=== PATIENT | female | born 1980 | race Caucasian/White ===

== ENCOUNTER 2018-01-22 19:18 | Emergency (ER) | payer SELFPAY ==
--- OUTSIDE RECORDS SUMMARY | 2018-01-22 19:20 | XMS REPORT ---
:1980 [facility] Address [address] [place] [address] [address]. Ortiz [address] [place] [address] Care Team Providers Name Role Phone JENNIFER KATHRYN Primary Care Provider Unavailable KATHRYN RODRIGUEZ Unavailable Unavailable Problems This patient has no known problems. Allergies, Adverse Reactions, Alerts This patient has no known allergies or adverse reactions. Medications This patient has no known medications. Results Test Description Test Time Test Comments Text Results Atomic Results Result Comments CBC with Differential 2017-04-17 05:37:00 Test Item Value Reference Range Comments WBC (test code=WBC) 13.1 K/cumm 4.4-10.5 RBC (test code=RBC) 4.66 M/cumm 3.75-5.20 Hemoglobin (test code=HGB) 14.0 gm/dL 12.2-14.8 Hematocrit (test code=HCT) 39.6 % 36.5-44.4 MCV (test code=MCV) 85.0 fL 80-100 MCH (test code=MCH) 30.1 pg 27.0-32.5 MCHC (test code=MCHC) 35.4 g/dL 32.0-37.5 RDW (test code=RDW) 12.6 % 11.5-14.5 Platelet Count (test code=PLTCT) 393 K/cumm 140-440 MPV (test code=MPV) 7.5 fL Diff Method (test code=DIFFM) Auto Neutrophil (test code=NEUT) 64.6 % 36-70 Lymphocyte (test code=LYMPH) 24.5 % 12-44 Monocyte (test code=MONO) 6.5 % 0-11 Eosinophil (test code=EOS) 3.9 % 0-7 Basophil (test code=BASO) 0.6 % 0-2 Neutro Abs (test code=ANEUT) 8.5 K/cumm 1.6-7.4 Lymph Abs (test code=ALYMPH) 3.2 K/cumm 0.5-4.6 [place] Abs (test code=AMONO) 0.9 K/cumm 0.0-1.2 Eos Abs (test code=AEOS) 0.51 K/cumm 0.00-0.74 Baso Abs (test code=ABASO) 0.1 K/cumm 0.00-0.21 Urinalysis [id number] 05:29:00 Test Item Value Reference Range Comments Color (test code=COLOR) Yellow Yellow,Straw,Pl yellow Clarity (test code=CLAR) Clear Clear Specific [place] (test code=SPGR) 1.013 1.001-1.035 pH (test code=PH) 6.0 5.0-9.0 Ketone (test code=KET) Negative mg/dL Negative Glucose (test code=GLUCUR) Negative mg/dL Negative Protein (test code=PROT) Negative mg/dL Negative Bilirubin (test code=BILI) Negative mg/dL Negative Occult Blood (test code=UDOB) Negative Negative Urobilinogen (test code=UROB) 0.2 mg/dL 0.2-1.0 Nitrite (test code=NIT) Negative Negative Leuk Esterase (test code=LEUK) Negative Negative Micros Exam (test code=MEXAM) Not indicated Comprehensive Metabolic [id number] 05:28:00 Test Item Value Reference Range Comments Sodium (test code=NA) 137 mmol/L 135-145 Potassium (test code=K) 3.8 mmol/L 3.5-5.1 Chloride (test code=CL) 102 mmol/L 98-105 Carbon Dioxide (test 23 mmol/L 22-29 code=CO2) Glucose (test code=GLU) 108 mg/dL 70-115 Blood Urea Nitrogen 5 mg/dL 6-20 (test code=BUN) Creatinine (test 0.8 mg/dL 0.5-0.9 code=CREAT) Calcium (test code=CA) 9.8 mg/dL 8.3-10.5 Prot Total (test 7.1 g/dL 6.4-8.3 code=TP) Albumin (test code=ALB) 4.3 g/dL 3.5-5.2 A/G Ratio (test 1.5 Ratio code=AGRATIO) Globulin (test 2.8 2.9-3.1 code=GLOB) Bili Total (test 0.2 mg/dL 0.1-0.9 code=TBIL) Alk Phos (test 107 U/L 35-104 code=APHOS) AST (test code=AST) 21 U/L 1-32 ALT (test code=ALT) 17 U/L 1-33 BUN/Creatinine Ratio 6.3 (test code=BCRATIO) Anion Gap (test 12 mmol/L 7-16 code=AGAP) Estimated GFR (test >60 mL/min/1.73m2 eGFR (estimated Glomerular code=GFR) Filtration Rate) is an estimated value,calculated from the patient's serum creatinine using the MDRD equation.It is NOT the patient's actual GFR. The eGFR provides a more clinicallyuseful measure of kidney disease than serum creatinine alone.This calculation takes sex and race into account, if the informationis provided. If the race is not provided, and the patient isAfrican-Serbian, multiply by 1.212. If sex is not provided, and thepatient is female, multiply by 0.742. Results for patients <18 years ofage have not been validated by the MDRD study and should be interpretedwith caution.eGFR Result Interpretation:eGFR > or=60 is in the Normal RangeeGFR < 60 may mean kidney diseaseeGFR < 15 may mean kidney failureRanges recommended by the National Kidney Foundation,http://nkdep.nih .gov [id number] 05:28:00 Test Item Value Reference Range Comments Amphetamine (test code=AMPH) Negative Negative For diagnostic purposes only, positive results should always be assessedin conjunctionwith the patient's medical history,clinical examination and otherfindings.To fulfill legal requirements, a more specific alternate chemical methodmust be used inorder to obtain a Confirmed analytical result. GC/MS is the preferred confirmatory method. Barbiturates (test code=DANNY) Negative Negative Benzodiazepine (test POSITIVE Negative code=TAVIA) Cocaine (test code=COCA) Negative Negative Methadone (test code=MTHD) Negative Negative Opiates (test code=OPIA) Negative Negative PCP (test code=PCP) Negative Negative Propoxyphene (test Negative Negative code=PROPOX) THC (test code=THC) Negative Negative Alcohol, Urine (test <0.01 g/dL 0.00-0.01 code=ETOHU)
[2018-01-22] MEDS ORDERED: TRAMADOL HCL 50 MG TAB ONE (21:55)
[2018-01-22] MEDS ORDERED: HYDROCODONE/APAP 7.5/325 MG TAB ONE (23:12)
[2018-01-23] MEDS ORDERED: GABAPENTIN 300 MG CAP ONE (00:19)
[2018-01-23] MEDS ORDERED: HYDROCODONE/APAP 7.5/325 MG TAB ONE (00:20)
--- NOTE | 2018-01-23 00:41 | EDPHYS ---
Physician Documentation [facility] Name: Nima Gallegos Age: 37 yrs Sex: Female : 1980 Arrival Date: 01/22/2018 Time: 19:19 Bed 23 Private MD: ED Physician Kian Aviles HPI: 01/22 19:29 This 37 yrs old Female presents to ER via Unassigned with complaints of Leg kav Pain, Numbness. 23:08 The patient presents with pain, that is acute. The complaints affect the lateral aspect kav of right thigh. Context: The problem was sustained at an unknown site, resulted from an unknown cause, the patient can fully bear weight, the patient is able to ambulate, Problem is a result from a previous injury: No. Onset: The symptoms/episode began/occurred acutely, 1 month(s) ago. Modifying factors: The symptoms are alleviated by nothing. the symptoms are aggravated by nothing. Associated signs and symptoms: The patient has no apparent associated signs or symptoms, Pertinent negatives. Severity of symptoms: At their worst the symptoms were moderate, just prior to arrival. The patient has not experienced similar symptoms in the past. The patient has not recently seen a physician. 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 - Social history:: Smoking status: Patient uses tobacco products, smokes one pack cigarettes per day. - Family history:: not pertinent. - Hospitalizations: : No recent hospitalization is reported. - History obtained from: friend. ROS: 23:10 Constitutional: Negative for fever, chills, and weight loss, Eyes: Negative for injury, kav pain, redness, and discharge, ENT: Negative for injury, pain, and discharge, Neck: Negative for injury, pain, and swelling, Cardiovascular: Negative for chest pain, palpitations, and edema, Respiratory: Negative for shortness of breath, cough, wheezing, and pleuritic chest pain, Abdomen/GI: Negative for abdominal pain, nausea, vomiting, diarrhea, and constipation, Back: Negative for injury and pain, : Negative for injury, bleeding, discharge, and swelling, Skin: Negative for injury, rash, and discoloration, Neuro: Negative for headache, weakness, numbness, tingling, and seizure, Psych: Negative for depression, anxiety, suicide ideation, homicidal ideation, and hallucinations, Allergy/Immunology: Negative for hives, rash, and allergies, Endocrine: Negative for neck swelling, polydipsia, polyuria, polyphagia, and marked weight changes, Hematologic/Lymphatic: Negative for swollen nodes, abnormal bleeding, and unusual bruising. 23:10 MS/extremity: Positive for pain, of the lateral aspect of right thigh, Negative for acute changes, injury or acute deformity, abrasion, bite, contusion, decreased range of motion, deformity, ecchymosis, erythema, laceration, paresthesias, puncture, rash, swelling, tenderness, tingling, warmth. Exam: 23:10 Constitutional: This is a well developed, well nourished patient who is awake, alert, kav and in no acute distress. Head/Face: Normocephalic, atraumatic. Eyes: Pupils equal round and reactive to light, extra-ocular motions intact. Lids and lashes normal. Conjunctiva and sclera are non-icteric and not injected. Cornea within normal limits. Periorbital areas with no swelling, redness, or edema. ENT: Nares patent. No nasal discharge, no septal abnormalities noted. Tympanic membranes are normal and external auditory canals are clear. Oropharynx with no redness, swelling, or masses, exudates, or evidence of obstruction, uvula midline. Mucous membranes moist. Neck: Trachea midline, no thyromegaly or masses palpated, and no cervical lymphadenopathy. Supple, full range of motion without nuchal rigidity, or vertebral point tenderness. No Meningismus. Chest/axilla: Normal chest wall appearance and motion. Nontender with no deformity. No lesions are appreciated. Cardiovascular: Regular rate and rhythm with a normal S1 and S2. No gallops, murmurs, or rubs. Normal PMI, no JVD. No pulse deficits. Respiratory: Lungs have equal breath sounds bilaterally, clear to auscultation and percussion. No rales, rhonchi or wheezes noted. No increased work of breathing, no retractions or nasal flaring. Abdomen/GI: Soft, non-tender, with normal bowel sounds. No distension or tympany. No guarding or rebound. No evidence of tenderness throughout. Back: No spinal tenderness. No costovertebral tenderness. Full range of motion. Skin: Warm, dry with normal turgor. Normal color with no rashes, no lesions, and no evidence of cellulitis. Neuro: Awake and alert, GCS 15, oriented to person, place, time, and situation. Cranial nerves II-XII grossly intact. Motor strength 5/5 in all extremities. Sensory grossly intact. Cerebellar exam normal. Normal gait. Psych: Awake, alert, with orientation to person, place and time. Behavior, mood, and affect are within normal limits. 23:10 Musculoskeletal/extremity: Extremities: noted in the lateral aspect of right thigh: ROM: intact in all extremities, Circulation is intact in all extremities. Pulses: are normal with no appreciated deficits, Sensation intact. Joints: All joints appear normal with full range of motion. Weight bearing: able to fully bear weight, Tendon exam: specific tendon testing normal through active and passive range of motion DVT Exam: No signs of deep vein thrombosis. no swelling, no tenderness, negative Homans' sign noted on exam, no appreciated bluish discoloration, no erythema, no increased warmth, pain, that is moderate, of the right leg, of the lateral aspect of right thigh, Calves: are non-tender, have equal circumference. Vital Signs: 19:38 BP 128 / 97; Pulse 112; Resp 19; Temp 97.8; Pulse Ox 99% on R/A; Weight 104.33 kg; aj Height 5 ft. 2 in. (157.48 cm); Pain 8/10; 21:07 BP 125 / 77; Pulse 103; Resp 18; Pulse Ox 98% ; tl3 22:42 BP 138 / 96; Pulse 95; Resp 18; Pulse Ox 98% ; tl3 23:13 BP 145 / 102; Pulse 91; Resp 18; Pulse Ox 97% ; tl3 01/23 00:13 BP 135 / 110; Pulse 92; Resp 16; Pulse Ox 97% on R/A; tl3 01/22 19:38 Body Mass Index 42.07 (104.33 kg, 157.48 cm) aj MDM: 01/22 22:45 Patient medically screened. [facility] 23:10 Data reviewed: vital signs, nurses notes. ED course: patient continues to c/o pain 04/17.kav 01/23 00:39 ED course: patient reports pain has improved. kav 01/22 23:25 Order name: Femur Right XRAY allyson Administered Medications: 01/22 21:56 Drug: traMADol 50 mg Route: PO; tl3 22:42 Follow up: Response: No adverse reaction tl3 23:10 Drug: [place] (7.5 mg-325 mg) 1 tabs Route: PO; tl3 01/23 00:23 Follow up: Response: Pain is unchanged, physician notified tl3 00:23 Drug: Gabapentin 600 mg Route: PO; tl3 00:45 Follow up: Response: No adverse reaction tl3 00:23 Drug: [place] (7.5 mg-325 mg) 1 tabs Route: PO; tl3 00:45 Follow up: Response: No adverse reaction tl3 Disposition: 06:45 Co-signature as Attending Physician, Kian Aviles MD I agree with the assessment and lucy plan of care. Disposition: 01/23/18 00:40 Discharged to Home. Impression: Pain in right thigh. - Condition is Stable. - Discharge Instructions: Musculoskeletal Pain, Heat Therapy, Pjwp-[id number]. - Prescriptions for Ibuprofen 600 mg Oral Tablet - take 1 tablet by ORAL route every 6 hours As needed take with food; 30 tablet. Ultram 50 mg Oral Tablet - take 1 tablet by ORAL route every 6 hours As needed; 30 tablet. gabapentin 600 mg Oral tablet - take 1 tablet by ORAL route Every night; 30 tablet. - Medication Reconciliation Form, Thank You Letter, Antibiotic Education, Prescription Opioid Use form. - Follow up: Private Physician; When: 2 - 3 days; Reason: Recheck today's complaints, Continuance of care, Re-evaluation by your physician. Follow up: Angel Breaux; When: 5 - 6 days; Reason: Recheck today's complaints, Continuance of care, Re-evaluation by your physician. - Problem is chronic. - Symptoms have improved. Signatures: Dispatcher [employer] EDAraceli Holloway, RN Kian Cardona MD MD cha Vern, Katherine, SWING TENDER SWING TENDER Estephanie Hector RN RN tl3 Corrections: (The following items were deleted from the chart) 00:46 00:40 01/23/2018 00:40 Discharged to Home. Impression: Pain in right thigh. Condition tl3 is Stable. Discharge Instructions: Musculoskeletal Pain, Heat Therapy, Cvux-cm-Gilp. Prescriptions for Ibuprofen 600 mg Oral Tablet - take 1 tablet by ORAL route every 6 hours As needed take with food; 30 tablet, Ultram 50 mg Oral Tablet - take 1 tablet by ORAL route every 6 hours As needed; 30 tablet. and Forms are Medication Reconciliation Form, Thank You Letter, Antibiotic Education, Prescription Opioid Use. Follow up: Private Physician; When: 2 - 3 days; Reason: Recheck today's complaints, Continuance of care, Re-evaluation by your physician. Follow up: Angel Breaux; When: 5 - 6 days; Reason: Recheck today's complaints, Continuance of care, Re-evaluation by your physician. Problem is chronic. Symptoms have improved. kav
--- NOTE | 2018-01-23 00:41 | ER ---
Nurse's Notes [facility] Name: Nima Gallegos Age: 37 yrs Sex: Female : 1980 Arrival Date: 01/22/2018 Time: 19:19 Bed 23 Private MD: Diagnosis: Pain in right thigh Presentation: 01/22 19:37 Presenting complaint: Patient states: Right thigh and hip pain and tingling for 1 aj month. Patient ambulated with steady gait. Transition of care: patient was not received from another setting of care. Onset of symptoms was December 2017. Care prior to arrival: None. 19:37 Method Of Arrival: Ambulatory 19:37 Acuity: GABRIEL 4 aj 23:15 Initial Sepsis Screen: Does the patient meet any 2 criteria? No. Patient's initial tl3 sepsis screen is negative. Does the patient have a suspected source of infection? No. Patient's initial sepsis screen is negative. Triage Assessment: 19:38 General: Appears in no apparent distress. comfortable, Behavior is calm, cooperative, aj appropriate for age. Pain: Complains of pain in right upper thigh and right quadriceps Pain currently is 8 out of 10 on a pain scale. Neuro: Level of Consciousness is awake, alert, obeys commands, Oriented to person, place, time, situation, Appropriate for age. Respiratory: Airway is patent Respiratory effort is even, unlabored, Respiratory pattern is regular, symmetrical. Derm: Skin is intact, is healthy with good turgor, Skin is pink, warm \T\ dry. normal. Musculoskeletal: Reports pain in right upper thigh and right quadriceps. 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 - Social history:: Smoking status: Patient uses tobacco products, smokes one pack cigarettes per day. - Family history:: not pertinent. - Hospitalizations: : No recent hospitalization is reported. - History obtained from: friend. Screenin:07 Abuse screen: Denies threats or abuse. Nutritional screening: No deficits noted. tl3 Tuberculosis screening: No symptoms or risk factors identified. Fall Risk None identified. Assessment: 21:07 General: Appears distressed, uncomfortable, well groomed, well developed, well tl3 nourished, Behavior is calm, cooperative, appropriate for age. Pain: Complains of pain in right leg and right quadriceps and right upper thigh. Neuro: Level of Consciousness is awake, alert, obeys commands, Oriented to person, place, time, situation, Appropriate for age. Cardiovascular: Heart tones S1 S2 present Patient's skin is warm and dry. Respiratory: Airway is patent Trachea midline Respiratory effort is even, unlabored, Respiratory pattern is regular, symmetrical. GI: No signs and/or symptoms were reported involving the gastrointestinal system. : No signs and/or symptoms were reported regarding the genitourinary system. EENT: No signs and/or symptoms were reported regarding the EENT system. Derm: No signs and/or symptoms reported regarding the dermatologic system. Musculoskeletal: Reports pain in right leg and right quadriceps and right upper thigh. 22:42 Reassessment: Patient appears in no apparent distress at this time. No changes from tl3 previously documented assessment. Patient and/or family updated on plan of care and expected duration. Pain level reassessed. Patient is alert, oriented x 3, equal unlabored respirations, skin warm/dry/pink. 23:13 Reassessment: No changes from previously documented assessment. Patient and/or family tl3 updated on plan of care and expected duration. Pain level reassessed. Patient is alert, oriented x 3, equal unlabored respirations, skin warm/dry/pink. states that pain has not gotten better. 01/23 00:13 Reassessment: No changes from previously documented assessment. Patient and/or family tl3 updated on plan of care and expected duration. Pain level reassessed. Patient is alert, oriented x 3, equal unlabored respirations, skin warm/dry/pink. pt states that pain is not relieved, it feels like burning needles. Vital Signs: 01/22 19:38 BP 128 / 97; Pulse 112; Resp 19; Temp 97.8; Pulse Ox 99% on R/A; Weight 104.33 kg; aj Height 5 ft. 2 in. (157.48 cm); Pain 8/10; 21:07 BP 125 / 77; Pulse 103; Resp 18; Pulse Ox 98% ; tl3 22:42 BP 138 / 96; Pulse 95; Resp 18; Pulse Ox 98% ; tl3 23:13 BP 145 / 102; Pulse 91; Resp 18; Pulse Ox 97% ; tl3 01/23 00:13 BP 135 / 110; Pulse 92; Resp 16; Pulse Ox 97% on R/A; tl3 01/22 19:38 Body Mass Index 42.07 (104.33 kg, 157.48 cm) ED Course: 01/22 19:19 Patient arrived in ED. am2 19:29 Rafaela Levine FNP is PHCP. kav 19:29 Kian Aviles MD is Attending Physician. kav 19:37 Triage completed. aj 19:38 Arm band placed on right wrist. Patient placed in waiting room, Patient notified of wait time. 20:59 Estephanie Interiano, RN is Primary Nurse. tl3 21:07 Resting quietly. tl3 21:07 Patient has correct armband on for positive identification. Bed in low position. Call tl3 light in reach. Side rails up X 1. Adult w/ patient. Pulse ox on. NIBP on. 21:07 No provider procedures requiring assistance completed. tl3 22:42 Patient did not have IV access during this emergency room visit. tl3 01/23 00:14 X-ray completed. Portable x-ray completed in exam room. Patient tolerated procedure kw well. 00:15 Femur Right XRAY In Process Unspecified. EDMS 00:40 Angel Breaux MD is Referral Physician. kav Administered Medications: 01/22 21:56 Drug: traMADol 50 mg Route: PO; tl3 22:42 Follow up: Response: No adverse reaction tl3 23:10 Drug: [place] (7.5 mg-325 mg) 1 tabs Route: PO; tl3 01/23 00:23 Follow up: Response: Pain is unchanged, physician notified tl3 00:23 Drug: Gabapentin 600 mg Route: PO; tl3 00:45 Follow up: Response: No adverse reaction tl3 00:23 Drug: [place] (7.5 mg-325 mg) 1 tabs Route: PO; tl3 00:45 Follow up: Response: No adverse reaction tl3 Outcome: 00:40 Discharge ordered by . kav 00:45 Discharged to home ambulatory. tl3 00:45 Condition: stable 00:45 Discharge instructions given to patient, Instructed on discharge instructions, follow up and referral plans. medication usage, Demonstrated understanding of instructions, follow-up care, medications, Prescriptions given X 3. 00:46 Patient left the ED. tl3 Signatures: Dispatcher [employer] EDAraceli Holloway, RN RN Rafaela Roca, IMPLANT COORDINATOR IMPLANT COORDINATOR Talia Alarcon Amanda [facility] Estephanie Interiano, RN RN tl3
--- NOTE | 2018-01-23 08:13 | RAD REPORT ---
EXAM DESCRIPTION: RAD - Femur Right - 01/23/2018 12:15 am CLINICAL HISTORY: Right leg pain FINDINGS: No fracture is seen. No bony abnormality is displayed
== END 2018-01-23 00:46 | disposition home or self-care (01) ==
LOC: ER 19:18
DX: M79.651 Pain in right thigh (principal); F41.9 Anxiety disorder, unspecified; F17.210 Nicotine dependence, cigarettes, uncomplicated
CPT/HCPCS: 99284

== ENCOUNTER 2018-03-01 16:07 | Emergency (ER) | payer SELFPAY ==
--- OUTSIDE RECORDS SUMMARY | 2018-03-01 16:09 | XMS REPORT ---
:1980 [facility] Address [address] [place] [address] Dr. Ortiz [address] [place] [address] Care Team Providers Name Role Phone JENNIFER [...] Lymph Abs (test code=ALYMPH) 3.2 K/cumm 0.5-4.6 [place] Abs (test code=AMONO) 0.9 K/cumm 0.0-1.2 Eos Abs (test code=AEOS) 0.51 K/cumm 0.00-0.74 Baso Abs (test code=ABASO) 0.1 K/cumm 0.00-0.21 Urinalysis [id number] 05:29:00 Test Item Value Reference Range Comments Color (test code=COLOR) Yellow Yellow,Straw,Pl yellow Clarity (test code=CLAR) Clear Clear Specific [place] (test code=SPGR) 1.013 1.001-1.035 pH (test code=PH) [...] Exam (test code=MEXAM) Not indicated Comprehensive Metabolic [id number] 05:28:00 Test Item Value Reference Range Comments [...] recommended by the National Kidney Foundation,http://nkdep.nih .gov [id number] 05:28:00 Test Item Value Reference Range Comments [...]
[2018-03-01] MEDS ORDERED: ACETAMINOPHEN 500 MG TAB ONE (17:07)
[2018-03-01] MEDS ORDERED: KETOROLAC 30 MG/ML INJ ONE (17:11)
[2018-03-01 17:23] LABS: Urine Blood 1+ (NEG); Urine Glucose NEGATIVE (NEG); Urine Protein 1+ (NEG)
[2018-03-01] MEDS ORDERED: CYCLOBENZAPRINE 10 MG TAB ONE (17:27)
--- NOTE | 2018-03-01 18:13 | ER ---
Nurse's Notes [facility] Name: Nima Gallegos Age: 37 yrs Sex: Female : 1980 Arrival Date: 03/01/2018 Time: 16:10 Bed 23 Private MD: Larry Lincoln R Diagnosis: Pain in right knee-s/p fall;Pain in upper arm-Left Presentation: 03/01 16:24 Presenting complaint: Patient states: left arm pain and numbness to left arm that began aa5 this morning around 0830. Pt also reports right knee pain. Transition of care: patient was not received from another setting of care. Onset of symptoms was March 01, 2018. Risk Assessment: Do you want to hurt yourself or someone else? Patient reports no desire to harm self or others. Initial Sepsis Screen: Does the patient meet any 2 criteria? No. Patient's initial sepsis screen is negative. Does the patient have a suspected source of infection? No. Patient's initial sepsis screen is negative. Care prior to arrival: None. 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 - Social history:: Smoking status: Patient uses tobacco products, smokes one pack cigarettes per day. - Ebola Screening: : No symptoms or risks identified at this time. Screenin:31 Abuse screen: Denies threats or abuse. Denies injuries from another. Nutritional aa1 screening: No deficits noted. Tuberculosis screening: No symptoms or risk factors identified. Fall Risk None identified. Assessment: 16:31 General: Appears in no apparent distress. comfortable, Behavior is calm, cooperative, aa1 appropriate for age. Pain: Complains of pain in left arm and right knee Pain began R knee pain x 3 weeks and L arm pain since 0830 this am. Neuro: Level of Consciousness is awake, alert, obeys commands, Oriented to person, place, time, situation, Moves all extremities. Full function Gait is steady, Speech is normal, Facial symmetry appears normal, Pupils are PERRLA, Reports numbness in left arm. Cardiovascular: Heart tones S1 S2 present Rhythm is regular. Respiratory: Airway is patent Respiratory effort is even, unlabored, Respiratory pattern is regular, symmetrical. GI: No signs and/or symptoms were reported involving the gastrointestinal system. : No signs and/or symptoms were reported regarding the genitourinary system. EENT: No signs and/or symptoms were reported regarding the EENT system. Derm: Skin is intact, is healthy with good turgor, Skin is pink, warm \T\ dry. Musculoskeletal: Circulation, motion, and sensation intact. Capillary refill < 3 seconds, Range of motion: intact in all extremities. 17:22 Reassessment: Patient appears in no apparent distress at this time. Patient and/or aa1 family updated on plan of care and expected duration. Pain level reassessed. Patient is alert, oriented x 3, equal unlabored respirations, skin warm/dry/pink. Awaiting xray results. 18:39 Reassessment: Patient appears in no apparent distress at this time. Patient is alert, aa1 oriented x 3, equal unlabored respirations, skin warm/dry/pink. Discussed d/c \T\ f/u instructions with pt \T\ spouse; denies questions or concerns at this time Patient states feeling better. Vital Signs: 16:26 BP 140 / 99; Pulse 104; Resp 16 S; Temp 97.5(TE); Pulse Ox 98% on R/A; Weight 104.33 kg aa5 (R); Height 5 ft. 2 in. (157.48 cm) (R); Pain 5/10; 17:21 BP 124 / 82; Pulse 87; Resp 16; Pulse Ox 98% on R/A; Pain 6/10; aa1 18:39 BP 122 / 85; Pulse 83; Resp 16; Pulse Ox 99% on R/A; aa1 16:26 Body Mass Index 42.07 (104.33 kg, 157.48 cm) aa5 ED Course: 16:10 Patient arrived in ED. mr 16:10 Larry Lincoln MD is Private Physician. mr 16:25 Triage completed. aa5 16:27 Arm band placed on Patient placed in an exam room, on a stretcher. aa5 16:29 Kian Miranda PA is PHCP. cp 16:29 Kian Aviles MD is Attending Physician. cp 16:31 Lisa Chao RN is Primary Nurse. aa1 16:31 Patient has correct armband on for positive identification. Placed in gown. Bed in low aa1 position. Call light in reach. Pulse ox on. NIBP on. 17:24 X-ray completed. Portable x-ray completed in exam room. Patient tolerated procedure la2 well. 17:27 XRAY Knee RIGHT 3 view In Process Unspecified. EDMS 18:11 Larry Lincoln MD is Referral Physician. cp 18:39 No provider procedures requiring assistance completed. Patient did not have IV access aa1 during this emergency room visit. Crutch training done. Knee immobilizer applied on right knee. Administered Medications: 17:20 Not Given (Other Intervention Used): Tylenol 1000 mg PO once aa1 17:20 Drug: TORadol 60 mg Route: IM; Site: right deltoid; aa1 18:39 Follow up: Response: No adverse reaction; Pain is decreased aa1 17:30 Drug: Flexeril 10 mg Route: PO; aa1 18:38 Follow up: Response: No adverse reaction; Pain is decreased aa1 Outcome: 18:12 Discharge ordered by MD. cp 18:39 Discharged to home ambulatory, with crutches, with significant other. aa1 18:39 Condition: good 18:39 Discharge instructions given to patient, significant other, Instructed on discharge instructions, follow up and referral plans. medication usage, crutch walking, Demonstrated understanding of instructions, follow-up care, medications, crutch walking, Prescriptions given X 2. 18:40 Patient left the ED. aa1 Signatures: Dispatcher [employer] EDIL Lisa Chao RN RN aa1 Yudith Mcdonald mr Kellen Mccarthy RN RN aa5 Kian Miranda PA PA Radha Salinas la2
--- NOTE | 2018-03-01 18:13 | EDPHYS ---
Physician Documentation [facility] Name: Nima Gallegos Age: 37 yrs Sex: Female : 1980 Arrival Date: 03/01/2018 Time: 16:10 Bed 23 Private MD: Larry Lincoln R ED Physician Kian Aviles HPI: 03/01 16:48 This 37 yrs old Female presents to ER via Ambulatory with complaints of Arm cp Pain. 16:48 The patient or guardian complains of pain, that is acute, intermittent paresthesias. cp The complaints affect the medial aspect left upper arm. Context: denies injury, reports symptoms started this morning. Treatment prior to arrival includes: no previous treatment. Patient also reports right knee pain since fall directly on knee yesterday. 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 - Social history:: Smoking status: Patient uses tobacco products, smokes one pack cigarettes per day. - Ebola Screening: : No symptoms or risks identified at this time. Vital Signs: 16:26 BP 140 / 99; Pulse 104; Resp 16 S; Temp 97.5(TE); Pulse Ox 98% on R/A; Weight 104.33 kg aa5 (R); Height 5 ft. 2 in. (157.48 cm) (R); Pain 5/10; 17:21 BP 124 / 82; Pulse 87; Resp 16; Pulse Ox 98% on R/A; Pain 6/10; aa1 18:39 BP 122 / 85; Pulse 83; Resp 16; Pulse Ox 99% on R/A; aa1 16:26 Body Mass Index 42.07 (104.33 kg, 157.48 cm) aa5 MDM: 16:29 Patient medically screened. cp 18:10 Data reviewed: vital signs, nurses notes, radiologic studies, plain films, and as a cp result, I will discharge patient. 03/01 17:08 Order name: Urine Dipstick--Ancillary (enter results); Complete Time: 18:04 bd 03/01 17:08 Order name: Urine --Ancillary (enter results); Complete Time: 18:04 bd 03/01 16:47 Order name: XRAY Knee RIGHT 3 view cp 03/01 16:47 Order name: Urine Test (obtain specimen); Complete Time: 17:46 cp 03/01 18:11 Order name: Knee Immobilizer; Complete Time: 18:38 cp 03/01 18:11 Order name: Crutches; Complete Time: 18:38 cp Administered Medications: 17:20 Not Given (Other Intervention Used): Tylenol 1000 mg PO once aa1 17:20 Drug: TORadol 60 mg Route: IM; Site: right deltoid; aa1 18:39 Follow up: Response: No adverse reaction; Pain is decreased aa1 17:30 Drug: Flexeril 10 mg Route: PO; aa1 18:38 Follow up: Response: No adverse reaction; Pain is decreased aa1 Disposition: 03/01/18 18:12 Discharged to Home. Impression: Pain in right knee - s/p fall, Pain in upper arm - Left. - Condition is Stable. - Discharge Instructions: Knee Immobilizer, Musculoskeletal Pain, Knee Pain. - Prescriptions for Naprosyn 500 mg Oral Tablet - take 1 tablet by ORAL route 2 times per day take with food; 20 tablet. Cyclobenzaprine 10 mg Oral Tablet - take 1 tablet by ORAL route every 8 hours As needed no driving while taking medication; 20 tablet. - Medication Reconciliation Form, Thank You Letter, Antibiotic Education, Prescription Opioid Use form. - Follow up: Larry Lincoln MD; When: 2 - 3 days; Reason: Recheck today's complaints. - Problem is new. - Symptoms have improved. Signatures: Dispatcher [employer] EDMS Lisa Chao RN RN aa1 Kellen Mccarthy RN RN aa5 Kian Miranda PA PA cp Corrections: (The following items were deleted from the chart) 18:40 18:12 03/01/2018 18:12 Discharged to Home. Impression: Pain in right knee - s/p fall; aa1 Pain in upper arm - Left. Condition is Stable. Forms are Medication Reconciliation Form, Thank You Letter, Antibiotic Education, Prescription Opioid Use. Follow up: Larry Katte; When: 2 - 3 days; Reason: Recheck today's complaints. Problem is new. Symptoms have improved. cp
--- NOTE | 2018-03-01 19:29 | RAD REPORT ---
EXAM DESCRIPTION: RAD - Knee Right 3 View - 03/01/2018 5:29 pm CLINICAL HISTORY: Fall, knee pain COMPARISON: None. FINDINGS: No fracture, dislocation or periosteal reaction.Small to moderate joint effusion present. No joint space narrowing. No foreign body or other soft tissue abnormality. IMPRESSION: Joint effusion with no acute bone finding. Clinical concerns for internal derangement or occult bony injury could be further assessed with MR im aging.
== END 2018-03-01 18:40 | disposition home or self-care (01) ==
LOC: ER 16:07
DX: M25.561 Pain in right knee (principal); M79.602 Pain in left arm
CPT/HCPCS: 81003; 81025; 96372; 99284